=== PATIENT | female | born 1995 | race Caucasian/White ===

== ENCOUNTER → 2018-08-18 14:13 | Outpatient (CLI) | payer OTHER, SELFPAY ==
[2018-08-18 15:01] LABS: Hematocrit 38.6 % (36-46); Hemoglobin 12.6 g/dL (12.0-16.0); Mean Corpuscular HGB Conc 32.6 % (30-36); Mean Corpuscular Hemoglobin 25.9 PG (26-34); Mean Corpuscular Volume 79.3 fL (80-100); Platelet Count 273 X10^3/uL (150-400); Red Blood Cell Count 4.87 X10^6/uL (4.0-5.2); Red Cell Distribution Width 15.8 % (11.6-14.8); White Blood Cell Count 7.9 X10^3/uL (4.5-11.0)
[2018-08-18 15:02] LABS: Prothrombin Time 11.4 SECONDS (10.1-12.7)
[2018-08-18 15:05] LABS: PTT Partial Thromboplastin Tim 30 SECONDS (26.4-36.2)
[2018-08-18 15:48] LABS: Neutrophils Absolute Manual 6162 /uL (3000-5900); Total Cells Counted 100
[2018-08-18 15:49] LABS: RBC Morphology Normal Morphology
[2018-08-18 15:50] LABS: Platelet Estimate Adequate on smear
== END ==
PROVIDERS: Visit Provider Physician Assistant
DX: R23.8 Other skin changes (principal); T14.8XXA Other injury of unspecified body region, initial encounter
CPT/HCPCS: 36415; 85025; 85610; 85730

== ENCOUNTER 2019-05-05 11:37 | Day surgery (SDC) | payer OTHER, SELFPAY ==
[2019-05-05] VITALS (7 sets, daily range): BP systolic 96–110; BP diastolic 51–70; PULSE 65–84; RESP 12–16; TEMP 36.1–36.9; O2SAT 96–100; BMI 25.9
--- NOTE | 2019-05-05 | PATH_ITS ---
[facility] Accession Number: [id number] . 01 Material submitted: . PART A: small bowel - SMALL BOWEL BIOPSY PART B: gastrointestinal site - RANDOM GASTRIC BIOPSY PART C: esophagus - ESOPHAGEAL BIOPSY . 01 Clinical history: . B. R/O H. PYLORI C. R/O FELDER'S ESOPHAGUS . 02 Diagnosis: A. Small Bowel, Biopsy: Small bowel mucosa with no diagnostic abnormality. Negative for active inflammation, dysplasia and malignancy. . B. Stomach, Random Biopsies: Antral and body-type mucosa with mild chronic gastritis. Negative for Helicobacter by immunohistochemistry. Negative for intestinal metaplasia. Negative for dysplasia and malignancy. . C. Esophagus, Biopsy: Squamocolumnar junctional mucosa with mild chronic inflammation. Negative for intestinal metaplasia by Alcian blue stain. Negative for dysplasia and malignancy. . [facility] 05/07/2019 1333 Local . 02 Electronically signed: . Arabella Reardon MD, Pathologist NPI- [id number] . 01 Gross description: . Part A: SMALL BOWEL BIOPSY: Received in formalin are 4 fragment(s) of head, soft tissue measuring 0.1 x 0.1 x 0.1 cm to 0.3 x 0.2 x 0.2 cm which is entirely submitted and submitted entirely in 1 cassette(s) Part B: RANDOM GASTRIC BIOPSY: Received in formalin are 3 fragment(s) of head, soft tissue measuring 0.2 x 0.2 x 0.2 cm to 0.3 x 0.2 x 0.2 cm which is entirely submitted and submitted entirely in 1 cassette(s) Part C: ESOPHAGEAL BIOPSY: Received in formalin are 3 fragment(s) of head, soft tissue measuring 0.1 x 0.1 x 0.1 cm to 0.2 x 0.1 x 0.1 cm which is entirely submitted and submitted entirely in 1 cassette(s) /[facility] 05/05/2019 2141 Local . 02 Microscopic: . B. An immunohistochemical stain was performed to evaluate for Helicobacter organisms and is negative. The control stain showed appropriate reactivity. . C. An Alcian blue stain was performed to evaluate for intestinal metaplasia and is negative. The control stain showed appropriate reactivity. . . * This test was developed and its performance characteristics determined by [facility]. It has not been cleared or approved by the U.S. Food and Drug Administration. The FDA has determined that such clearance or approval is not necessary. This test is used for clinical purposes. It should not be regarded as investigational or for research. . 02 Pathologist provided ICD-10: R11.0 . 02 CPT . 905518, 190528, 851329, 368189, [id number] Performed at: 01 [facility] [address] [place] [address], [place], [place] [id number] MD Rafi Toney MD Phone: [phone] Performed at: 02 [facility] [place] [address] [address] [place], [place] [id number] MD Arabella Reardon MD Phone: [phone]
[2019-05-05] MEDS: SODIUM CHLORIDE 0.9% 1,000 ML 70 ML IV (12:20)
--- NOTE | 2019-05-05 13:13 | P.HP_ITS ---
History of Present Illness History of Present Illness Date Patient Seen: 05/05/19 Chief complaint: [id number] Narrative: Patient is a 23-year-old female who presented for EGD. She was last seen in the office on April 30, 2019. She does have a personal history of peptic ulcer disease diagnosed with EGD at [facility] when she was 18. She had H pylori which was treated. Patient reports constant nausea with vomiting. Generalized abdominal pain. She states her pain is worse after meals. Patient History Social History household members: spouse Smoking Status: Current every day smoker Family & Social History Social History: household members spouse Tobacco & Substance use: Smoking Status Current every day smoker Meds Home Medications and Allergies Home Medications Medication Instructions Recorded Confirmed Type no.144-folic acid 400 mcg PO DAILY 05/05/19 05/05/19 History [] Allergies Allergy/AdvReac Type Severity Reaction Status Date / Time ondansetron [From Zofran] Allergy Verified 08/18/18 13:41 Review of Systems Review of Systems ROS Unobtainable: All systems reviewed & are unremarkable except as noted in HPI and below Exam Vital Signs (past 8 hours): - 05/05/19 12:00 Temperature 98.4 F Pulse Rate 65 Respiratory Rate 16 Blood Pressure 110/65 Pulse Oximetry 100 Oxygen Delivery Method Room Air Const General: cooperative, healthy appearing, comfortable, well developed and well groomed Nutritional Appearance: average body habitus Orientation: alert, awake and oriented x3 HENMT Head: normal to inspection, normocephalic and atraumatic Nose: external nose normal Resp Effort & Inspection: normal respiratory effort, able to speak in complete sentences and no use of accessory muscles Auscultation: clear to auscultation bilaterally Cardio Rate: regular rate Rhythm: regular rhythm and abnormal rhythm Heart Sounds: S1 normal and S2 normal GI Palpation: soft and No tender Auscultation: normal bowel sounds Extrem General: no pedal edema Assessment & Plan Assessment & Plan narrative: 1. Abdominal pain 2. Dyspepsia 3. Nausea 4. History of H pylori infection 5. History of peptic ulcer disease 6. Diarrhea
[2019-05-05] MEDS: LIDOCAINE 4% SOLN 50 ML 20 ML TOP (14:33)
--- NOTE | 2019-05-05 14:46 | PM.OP.ENDO ---
Operative Date/Time/Diagnoses Date of procedure: 05/05/19 Time of procedure: 14:40 Procedure Notes Procedure in detail: Surgeon: Martha Victor DO Procedure: Esophagogastroduodenoscopy with biopsies Preoperative diagnosis: 1. Abdominal pain 2. Dyspepsia 3. History of H pylori infection 4. History peptic ulcer disease 5. Nausea 6. Diarrhea Postoperative diagnosis: 1. Reflux with Ingram's at 39 cm 2. Normal appearing stomach, biopsy to rule out H pylori 3. Normal appearing small bowel, biopsy to rule out celiac sprue Medications: Conscious sedation using 5 mg IV of Midazolam and 150 mcg IV of Fentanyl, 4% lidocaine gargle Preanesthesia Assessment An H and P was performed/updated and the Px?s ASA class is 1. The procedure was discussed in detail with the patient. The potential risks and complications including infection, bleeding, missed lesions, perforation, need for surgery in case of perforation, prolonged hospital stay, and were explained. A brief question and answer period was allotted and once all questions were answered, informed consent was obtained. The patient was brought back to the procedure room and placed on standard monitoring. The patient?s vital signs were monitored continuously throughout the entire procedure. Prior to starting, a timeout was performed to confirm the patient?s identity, allergies, medications, and procedure. Procedure in detail The patient was placed in left lateral decubitus position and a bite block was inserted. The tip of the upper endoscope was placed into the mouth and advanced without difficulty under direct visualization into the esophagus. Esophagus: Changes of reflux, rule out Ingram's esophagus at 39 cm, biopsy Stomach: Normal appearing gastric mucosa, biopsied to rule out H pylori Duodenum: Normal appearing small bowel, biopsied to rule out celiac sprue The patient tolerated the procedure well and will be brought back to the recovery area to be discharged once criteria are met. The total physician intraservice time was 5min. Complications There were no complications and estimated blood loss was minimal. Recommendations: Resume previous diet Continue outPx medications Follow up pathology results Office follow up as previously scheduled An emergency contact number was given to the patient for any complications related to the procedure
[2019-05-05] MEDS: fentaNYL 250 MCG/5 ML INJ IV (14:48)
[2019-05-05] MEDS: MIDAZOLAM 5 MG/5 ML VIAL IV (14:49)
== END 2019-05-05 15:37 | disposition home or self-care (01) ==
PROVIDERS: Visit Provider Student in an Organized Health Care Education/Training Program
PROC: 0DJ08ZZ Inspection of Upper Intestinal Tract, Via Natural or Artificial Opening Endoscopic (ICD-10-PCS; CPT 43235; principal; 2019-05-05 13:30)
DX: K22.70 Barrett's esophagus without dysplasia (principal); K21.9 Gastro-esophageal reflux disease without esophagitis
CPT/HCPCS: 43239; J2250; J3010